=== PATIENT | female | born 1970 | race Caucasian/White ===

== ENCOUNTER 2016-12-30 19:22 | Inpatient (IN) | payer OTHER ==
--- NOTE | ~2016-12-30 | PN ---
Unit #: [id number] #: [id number] Patient: COURTNEY MEZA [id number] [facility] [address] [place] [address] [id number] I MR#: [id number] NAME: COURTNEY MEZA ROOM: [facility] Age: 46 Sex: F Admission Date: 12/30/2016 : 1970 Attending Physician: Tnio Dela Cruz M.D. Admitting Physician: Tino Dela Cruz M.D. Primary Care Physician: Primary Care Physician Kirti WARE NOTES DATE 01/03/2017 DISCUSSION Miss Courtney Meza is a 46-year-old female seen on 01/03/2017. Patient interviewed, chart reviewed, obtained information from nursing staff. The patient was compliant, cooperative. Mood sad/dysphoric, flat affect, guarded. Patient reported that she is still having pain in her rib cage. EKG normal. Vital signs stable. Patient still continues to report anxious, nervous. Patient requested for higher dosage of Vistaril 100 mg 3 times a day, which was declined, advised to stay on the lower dosage. I explained that we do not like to overmedicate her, to keep the medication at minimum and appropriate. Patient still somewhat medication seeking. Complete review of systems unremarkable. MENTAL STATUS EXAMINATION General appearance: Patient dressed casually. Attention span and concentration fair. Oriented in place and person. Mood and affect sad/dysphoric, withdrawn, isolative, guarded, anxious. Speech regular rate. Thought processes goal directed. Patient denied any thoughts of harming self or others or any psychotic symptoms. Recent and remote memory poor. Insight and judgment poor. DIAGNOSIS 1. Alcohol use disorder, severe 2. Mood disorder, NOS ASSESSMENT/PLAN Continue with current medication and therapy protocol. We will monitor response to medication and make further adjustment of medication. Dictated by... Pretty Davison/alejandra Unit #: [id number] #: [id number] Patient: COURTNEY MEZA TD: 01/05/2017 11:07 JOB #: [id number] JESSICA PROGRESS NOTES X Chhibber,Tino Z MD X PROGRESS NOTE
--- NOTE | ~2016-12-30 | HP ---
Unit #: [id number] #: [id number] Patient: COURTNEY MEZA [id number] [place] [address] [id number] I MR#: [id number] NAME: COURTNEY MEZA ROOM: P206 Age: 46 Sex: F Admission Date: 12/30/2016 : 1970 Attending Physician: Tino Dela Cruz M.D. Admitting Physician: Tino Dela Cruz M.D. Primary Care Physician: Primary Care Physician No HISTORY AND PHYSICAL HISTORY OF PRESENT ILLNESS Courtney is a 46 year old admitted to [address] [place] [address] because of her continued abuse of alcohol. She has had other admissions to this facility. PAST MEDICAL HISTORY 1. Long history of alcohol abuse 2. History of withdrawal seizures PAST SURGICAL HISTORY 1. Low back x2 2. Hysterectomy 3. T & A 4. Breast augmentation ALLERGIES No known drug allergies. SOCIAL HISTORY Smokes less than on pack per day. Drinks at least a case of beer on a daily basis and denies illicit drug use. FAMILY HISTORY Medically noncontributory. REVIEW OF SYSTEMS CONSTITUTIONAL: No fever or chills. HEENT: Denies any sore throat, ear pain or runny nose. CARDIOVASCULAR: Denies chest pain, irregular heart rhythm or palpitations. CHEST: Denies shortness of breath or cough. No hemoptysis. GASTROINTESTINAL: Denies nausea, vomiting, diarrhea or chronic constipation. ENDOCRINE: Denies history of increased thirst or urination. No recent significant weight loss or gain. GENITOURINARY: Denies dysuria, frequency, or hematuria. SKIN: Denies any rashes. HEMATOLOGIC: Denies history of increased bleeding or bruising. MUSCULOSKELETAL: Denies any hot, swollen joints. No generalized muscle pain. NEUROLOGIC: Denies problems with vision or speech. No frequent, severe headaches. No numbness, tingling or weakness in any extremities. Denies loss of bladder or bowel control. Unit #: [id number] #: [id number] Patient: COURTNEY MEZA CURRENT MEDICATIONS Detox protocol PHYSICAL EXAMINATION GENERAL: Alert, well-nourished, in no apparent distress. VITAL SIGNS: Blood pressure 113/66, heart rate 96, respirations 16, temperature 98.6. WEIGHT: 137 pounds. HEIGHT: 5'6". SKIN: Warm and dry without rash or lesion. HEENT: Normocephalic. TMs not viewed. Oral and nasal passages clear. Conjunctivae clear. Pupils equal, round and reactive to light and accommodation. Extraocular movements intact. NECK: Supple without lymphadenopathy or thyromegaly. HEART: Regular rate and rhythm without murmur. LUNGS: Clear. ABDOMEN: Soft, nontender. : Not done. EXTREMITIES: No evidence of cyanosis, clubbing or edema. Moves all extremities without focal deficit. NEUROLOGICAL: Grossly within normal limits. Cranial Nerves: II: Visual tovar are intact. III, IV AND : Extraocular movements are intact. Pupils are equal, round and reactive to light. V: Facial sensation is grossly normal. VII: Facial movements and expression are normal. VIII: Auditory acuity grossly intact. IX, X: Uvula is midline. Phonation is normal. XI: Patient shrugs shoulders and turns head normally. XII: Tongue protrudes in the midline. Sensory and Motor Function: Sensory and motor sensation is grossly normal. Motor: moves all extremities well. Coordination: Gait is normal. Deep Tendon Reflexes: Intact. IMPRESSION Psychiatric admission RECOMMENDATIONS PSYCHIATRIC: Per psychiatrist. MEDICAL: I see no contraindications to participating in facility's activities. MEDICAL PROGNOSIS Good. MEDICAL CONDITION Stable. Dictated by... Lacy Neal PYaquelinA.-Tino. for Pretty Huffman/artis TD: 12/31/2016 21:23 Unit #: [id number] #: [id number] Patient: COURTNEY MEZA JOB #: [id number] HISTORY AND PHYSICAL X Lacy Neal X HISTORY AND PHYSICAL
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
--- NOTE | ~2016-12-30 | PN ---
Unit #: [id number] #: [id number] Patient: COURTNEY MEZA [id number] [facility] [address] [place] [address] [id number] I MR#: [id number] NAME: COURTNEY MEZA ROOM: [facility]6 Age: 46 Sex: F Admission Date: 12/30/2016 : 1970 Attending Physician: Tino Dela Cruz M.D. Admitting Physician: Tino Dela Cruz M.D. Primary Care Physician: Primary Care Physician Kirti LOPEZ PROGRESS NOTES DATE 01/01/2017 DISCUSSION Ms. Corutney Meza is a 46-year-old female seen on 01/01/2017. The patient reported that she needs to go back on her Adderall and Wellbutrin but still somewhat shaky, anxious, nervous, having withdrawals from alcohol. Complete review of systems unremarkable. MENTAL STATUS EXAMINATION General appearance, the patient dressed casually, anxious, nervous. Attention span and concentration fair. Oriented to place and person. Mood and affect was sad, dysphoric. Speech regular rate. Thought process goal directed. The patient denied any thoughts of harming self or others but somewhat guarded. Recent and remote memory poor. Insight and judgement poor. DIAGNOSES Alcohol use disorder severe. Mood disorder NOS. ASSESSMENT/PLAN Recommending at this time to resume Wellbutrin 100 mg daily and avoid Adderall. Continue with the detox protocol. Adjust monitoring. Continue with the inpatient programming. If needed consider further adjustment of medication. Dictated by... Pretty Davison/artis TD: 01/03/2017 02:44 JOB #: [id number] Unit #: [id number] #: [id number] Patient: COURTNEY MEZA PROGRESS NOTES X Tino Dela Cruz MD PROGRESS NOTE
--- NOTE | ~2016-12-30 | DS ---
Unit #: [id number] #: [id number] Patient: MICHOACANO MEZA [id number] [place] [address] [id number] I MR#: [id number] NAME: MICHOACANO MEZA ROOM: [facility] Age: 46 Sex: F Admission Date: 12/30/2016 : 1970 Discharge Date: 01/06/2017 Attending Physician: Tino Dela Cruz M.D. Primary Care Physician: Primary Care Physician No DISCHARGE SUMMARY REASON FOR ADMISSION Alcohol abuse, depression, and hallucination. HOSPITAL COURSE The patient was admitted to inpatient unit on 12/30/2016 and discharged on 01/06/2017. The patient was treated on the inpatient unit with group therapy, individual therapy, medication management, and detox protocol. The patient responded well with the above modalities of treatment. The patient was subsequently discharged with a plan to follow up in outpatient clinic. DISCHARGE MEDICATIONS Wellbutrin 100 mg in the morning for depression, Desyrel 100 mg at bedtime for sleep, Geodon 40 mg at bedtime for psychosis, Tofranil 25 mg b.i.d. for anxiety, Vistaril 50 mg t.i.d. for anxiety, and Neurontin 400 mg t.i.d. for mood stabilization. DISCHARGE DIAGNOSES Psychiatric: 1. Alcohol use disorder, severe, F10.20. 2. Psychosis, not otherwise specified. 3. History of bipolar mood disorder. 4. History of attention deficit hyperactivity disorder, combined type by history. Secondary diagnosis: Deferred. Medical diagnoses: History of sciatica, history of herpes simplex, chronic back pain. Stressors: Psychosocial stressors. DISCHARGE INSTRUCTIONS The patient is to follow up in outpatient clinic as per high school social science teacher. CONDITION ON DISCHARGE The patient was pleasant and cooperative. Denied any psychotic symptom or any suicidal ideation. PROGNOSIS Guarded. DIET AND ACTIVITY As tolerated. Unit #: [id number] #: [id number] Patient: MICHOACANO MEZA Dictated by... Tino Dela Cruz M.D. SZC/modl TD: 01/07/2017 18:16 JOB #: [id number] DISCHARGE SUMMARY X Tino Dela Cruz MD DISCHARGE SUMMARY
--- NOTE | ~2016-12-30 | PN ---
Unit #: [id number] #: [id number] Patient: COURTNEY MEZA [id number] [facility] [address] [place] [address] [id number] I MR#: [id number] NAME: COURTNEY MEZA ROOM: [facility]6 Age: 46 Sex: F Admission Date: 12/30/2016 : 1970 Attending Physician: Tino Dela Cruz M.D. Admitting Physician: Tino Dela Cruz M.D. Primary Care Physician: Primary Care Physician Kirti WARE NOTES DATE 01/02/2017 DISCUSSION Courtney Meza is a 46-year-old female. Patient interviewed. Chart reviewed. Obtained information from nursing staff. Patient was compliant, cooperative. Mood sad, dysphoric, flat affect. Patient reported that she is still having a lot of problems with balance and increased heart rate, restlessness, anxiety, mood lability. Patient denied any side effects from medication. Patient still somewhat anxious, nervous. Complete review of system unremarkable. MENTAL STATUS EXAMINATION General appearance, patient dressed casually. Attention span, concentration fair. Oriented in place and person. Mood and affect sad, dysphoric. Speech monotone. Thought process concrete. Patient denied any thoughts of harming self or others or any psychotic symptoms. Recent and remote memory poor. Insight and judgement poor. DIAGNOSIS Alcohol use disorder, severe. ASSESSMENT/PLAN Advised to continue with current medication and therapeutic protocol. Will monitor response to medication and make further adjustment of medication. Patient's pulse has been running 122, blood pressure 108/91. Advised to get a medical consult. Patient's EKG was normal. Dictated by... Pretty Davison/shawn TD: 01/04/2017 16:05 JOB #: [id number] Unit #: [id number] #: [id number] Patient: COURTNEY MEZA CHAZ NOTES X Tino Dela Cruz MD PROGRESS NOTE
--- NOTE | ~2016-12-30 | EKG ---
PATIENT: MICHOACANO MEZA UNIT #: [id number] Ventricular Rate: 91 BPM Atrial Rate: 91 BPM P-R Interval: 158 ms QRS Duration: 90 ms Q-T Interval: 386 ms QTC Calculation(Bezet): 474 ms P Latty: 65 degrees Calculated R Latty: 72 degrees Calculated T Latty: 68 degrees Diagnosis Line: Normal sinus rhythm Diagnosis Line: Normal ECG Diagnosis Line: No previous ECGs available Diagnosis Line: Confirmed by BHAKTI TINOCO MD ([id number]) on 01/01/2017 Diagnosis Line: 6:09:03 PM INTERPRETING MD: ALEJANDRINA العراقي
--- NOTE | ~2016-12-30 | PN ---
Unit #: [id number] #: [id number] Patient: MICHOACANO MEZA [id number] [facility] [address] [place] [address] [id number] I MR#: [id number] NAME: MICHOACANO MEZA ROOM: [facility] Age: 46 Sex: F Admission Date: 12/30/2016 : 1970 Attending Physician: Tino Dela Cruz M.D. Admitting Physician: Tino Dela Cruz M.D. Primary Care Physician: Primary Care Physician Kirti WARE NOTES DATE OF SERVICE: 01/05/2017 DISCUSSION Ms. Annamaria Meza is a 46-year-old female. The patient interviewed, chart reviewed, and obtained information from nursing staff. The patient tolerating medication fairly well. No side effects of medication. She is still feeling sad, anxious hearing voices, but denied any suicidal or homicidal ideation, participating in the program. REVIEW OF SYSTEMS Complete review of systems unremarkable. MENTAL STATUS EXAMINATION General appearance, the patient dressed casually. Attention span and concentration, fair. Oriented in place and person. Mood and affect were sad, dysphoric, anxious. Speech, regular rate. Thought process, goal directed. The patient denied any thoughts of harming self or others or any psychotic symptom. Recent and remote memory, poor. Insight and judgment, poor. DIAGNOSES 1. Mood disorder, not otherwise specified. 2. Alcohol use disorder, severe. ASSESSMENT AND PLAN Advised to continue with current medication and therapeutic protocol. We will monitor response to medication and make further adjustment of medication. Dictated by... Pretty Davison/niall TD: 01/07/2017 06:22 JOB #: [id number] Unit #: [id number] #: [id number] Patient: MICHOACANO MEZA PROGRESS NOTES X Tino Dela Cruz MD PROGRESS NOTE
--- NOTE | ~2016-12-30 | PN ---
Unit #: [id number] #: [id number] Patient: MICHOAACNO MEZA [id number] [facility] [address] [place] [address] [id number] I MR#: [id number] NAME: MICHOACANO MEZA ROOM: [facility]6 Age: 46 Sex: F Admission Date: 12/30/2016 : 1970 Attending Physician: Tino Dela Cruz M.D. Admitting Physician: Tino Dela Cruz M.D. Primary Care Physician: Primary Care Physician Kirti WARE NOTES DATE OF SERVICE: 12/31/2016 DISCUSSION Ms. Katie Meza is a 46-year-old female, seen on 12/31/2016. The patient interviewed, chart reviewed, and obtained information from nursing staff. The patient was compliant and cooperative. Mood was sad and dysphoric. The patient continues to have hallucination, guarded, paranoid, mood lability. The patient has been isolative, guarded. Complete review of systems unremarkable. MENTAL STATUS EXAMINATION General appearance, the patient dressed casually. Attention span and concentration, fair. Oriented in place and person. Mood and affect were labile. Speech, regular rate. Thought process, goal directed. The patient denied any thoughts of harming self or others, but still having hallucinations. Denied any command hallucination. Recent and remote memory, poor. Insight and judgment, poor. DIAGNOSES 1. Alcohol use disorder, severe. 2. Mood disorder, not otherwise specified. 3. Psychosis, not otherwise specified. ASSESSMENT AND PLAN Advised to continue with current medication and therapeutic protocol. We will monitor response to medication and make further adjustment of medication. Advised the patient not to use upon discharge any drugs, alcohol, or Wellbutrin or Adderall as they can cause psychosis. Dictated by... Pretty Davison/mauricel TD: 01/01/2017 15:52 JOB #: [id number] Unit #: [id number] #: [id number] Patient: MICHOACANO MEZA PROGRESS NOTES X Tino Dela Cruz MD PROGRESS NOTE
--- NOTE | ~2016-12-30 | CO ---
Unit #: [id number] #: [id number] Patient: COURTNEY MEZA [id number] [place] [address] [id number] I MR#: [id number] NAME: COURTNEY MEZA ROOM: [facility] Age: 46 Sex: F Admission Date: 12/30/2016 : 1970 Attending Physician: Tino Dela Cruz M.D. CONSULTATION REPORT SUBJECTIVE Courtney is a 46-year-old, who was admitted for alcohol detox. We have been asked to see her for elevated heart rate. In the beginning of her detox, heart rate was running 105 to 110. As her detox continued, heart rate returned to more normal levels at 78, 72, and 80. PLAN Continue alcohol detox. Elevated heart rate was most likely secondary to her alcohol. Dictated by... Tarsha Rodriguez/niall TD: 01/04/2017 13:59 JOB #: [id number] CONSULTATION REPORT X Lacy Neal CONSULTATION REPORT
--- NOTE | ~2016-12-30 | PN ---
Unit #: [id number] #: [id number] Patient: COURTNEY MEZA [id number] [facility] [address] [place] [address] [id number] I MR#: [id number] NAME: COURTNEY MEZA ROOM: P206 Age: 46 Sex: F Admission Date: 12/30/2016 : 1970 Attending Physician: Tino Dela Cruz M.D. Admitting Physician: Tino Dela Cruz M.D. Primary Care Physician: Primary Care Physician Kirti WARE NOTES DATE OF SERVICE: 01/04/2017 DISCUSSION Ms. Courtney Meza is a 46-year-old female. The patient reports that she is still feeling sad and depressed, no energy, and also reported hearing voices. REVIEW OF SYSTEMS Complete review of systems unremarkable. MENTAL STATUS EXAMINATION General appearance, the patient dressed casually. Attention span and concentration, fair. Oriented in place and person. Mood and affect, sad and dysphoric. Speech, monotone. Thought process, concrete. The patient denied any thoughts of harming self or others, but still having auditory hallucination. Recent and remote memory, poor. Insight and judgment, poor. Denied any command hallucination. DIAGNOSES Alcohol use disorder, severe. Mood disorder, not otherwise specified. Psychosis, not otherwise specified. ASSESSMENT/PLAN Advised to resume Wellbutrin 100 mg in the morning and keep the dosage low and also advised Geodon starting with 20 and going up to 40 for mood stabilization and hallucination. Continue with the inpatient programing. If needed, consider further adjustment of medication. Dictated by... Pretty Davison/niall TD: 01/07/2017 06:19 JOB #: [id number] Unit #: [id number] #: [id number] Patient: COURTNEY MEZA PROGRESS NOTES X Tino Dela Cruz MD PROGRESS NOTE
--- NOTE | ~2016-12-30 | CO ---
Unit #: [id number] #: [id number] Patient: MICHOACANO MEZA [id number] [facility] [address] [place] [address] [id number] I MR#: [id number] NAME: MICHOACANO MEZA ROOM: [facility]6 Age: 46 Sex: F Admission Date: 12/30/2016 : 1970 Attending Physician: Tino Dela Cruz M.D. Primary Care Physician: Primary Care Physician No Consultation Date: 12/31/2016 CONSULTATION REPORT JOB NOTE: DICTATED FOR NOT DICTATED SUBJECTIVE Annamaria is a 46-year-old, admitted because of her abuse of alcohol. We have been asked to see her for a "possible UTI." At time of her admission physical exam, she had no complaints of dysuria, urgency, or frequency. Admission urinalysis is completely within normal limits. PLAN Plan will be to continue alcohol detox and encourage fluids. Dictated by... Lacy Neal P.A.-C. for Pretty Huffman/niall TD: 01/01/2017 13:16 JOB #: [id number] CONSULTATION REPORT X Lacy Neal X CONSULTATION REPORT
[2016-12-31 09:39] LABS: BASOPHIL% 1.2 % (0-2.5); EOSINOPHIL# 0.2 X10e3 (0-0.7); EOSINOPHIL% 5.6 % (0.0-7.0); HEMATOCRIT 34.4 % (35.0-45.0); HEMOGLOBIN 11.8 gm/dL (12.0-16.0); LYMPHOCYTE# 1.2 X10e3 (1.0-3.5); LYMPHOCYTE% 36.8 % (17.0-45.0); MEAN CELL VOLUME 99.7 FL (83-96); MEAN CORPUSCULAR HEMOGLOBIN 34.1 PG (28-34); MEAN CORPUSCULAR HGB CONC 34.2 g/dL (30-36); MEAN PLATELET VOLUME 7.5 FL (6.5-11.5); MONOCYTE# 0.3 X10e3 (0-1.0); MONOCYTE% 10.4 % (3.0-12.0); NEUTROPHIL# 1.5 X10e3 (1.5-7.1); PLATELET COUNT 241 X10e3 (140-420); RED BLOOD COUNT 3.45 X10e (3.90-5.30); RED CELL DISTRIBUTION WIDTH 12.9 % (11.0-15.5); WHITE BLOOD COUNT 3.3 X10e3 (4.0-10.5)
[2016-12-31 09:49] LABS: DIFF IND NO
[2016-12-31 10:06] LABS: ALKALINE PHOSPHATASE 69 U/L (32-92); ALT (SGPT) 35 U/L (10-40); AST (SGOT) 63 U/L (10-42); BILIRUBIN,TOTAL 2.3 mg/dL (0.2-2.0); BLOOD UREA NITROGEN 7 mg/dL (9-23); BUN/CREATININE RATIO 7.77; CALCIUM SERUM 9.2 mg/dL (8.4-10.2); CARBON DIOXIDE 28 mmol/L (22-31); CHLORIDE 98 mmol/L (100-111); CREATININE SERUM 0.9 mg/dL (0.6-1.4); GLOM FILT RATE Estimated ABOVE60 mL/min (>60); GLUCOSE FASTING 175 mg/dL (70-110); POTASSIUM 4.2 mmol/L (3.5-5.1); PROTEIN TOTAL SERUM 6.5 g/dL (6.0-8.3); SODIUM 135 mmol/L (135-145)
[2016-12-31 10:09] LABS: THYROID STIMULATING HORMONE 1.82 uIU/ml (0.34-5.60)
[2016-12-31 10:16] LABS: FREE THYROXIN (T4) 0.73 ng/dL (0.58-1.64)
[2017-01-01 09:35] LABS: URINE APPEARANCE CLEAR; URINE BILIRUBIN NEG (NEG); URINE BLOOD NEG (NEG); URINE COLOR DK YELLOW; URINE GLUCOSE NEG (NEG); URINE KETONE NEG (NEG); URINE LEUKOCYTE ESTERASE NEG (NEG); URINE NITRATE NEG (NEG); URINE PROTEIN NEG (NEG); URINE SPECIFIC GRAVITY 1.009 (1.003-1.035); URINE UROBILINOGEN 0.2 MG/DL (NEG)
[2017-01-01 10:51] LABS: AMPHETAMINE NEG (NEG); BARBITURATES NEG (NEG); BENZODIAZEPINES POS (NEG); COCAINE NEG (NEG); MARIJUANA NEG (NEG); OPIATES NEG (NEG); TRICYCLIC ANTIDEPRESSANTS NEG (NEG); U METHADONE NEG (NEG)
== END 2017-01-06 12:41 | DRG 897 ==
LOC: P2S 19:22
PROVIDERS: Psychiatry & Neurology Psychiatry
DX: F10.20 Alcohol dependence, uncomplicated (principal); F31.9 Bipolar disorder, unspecified; F29 Unspecified psychosis not due to a substance or known physiological condition; M54.30 Sciatica, unspecified side; F17.200 Nicotine dependence, unspecified, uncomplicated; F90.2 Attention-deficit hyperactivity disorder, combined type; M54.9 Dorsalgia, unspecified; G89.29 Other chronic pain
CPT/HCPCS: 80053; 80307; 81003; 84439; 84443; 85025; 86592